=== PATIENT | male | born 1995 | race Two or more races ===

== ENCOUNTER 2019-06-20 19:11 | Emergency (ER) | payer OTHER ==
[~2019-06-20] VITALS: Ht 175.3 cm; Wt 70.3 kg
[2019-06-20] MEDS ORDERED: KETOROLAC TROMETH 60MG/2ML VIAL IM ONE (19:30)
[2019-06-20] MEDS ORDERED: PROPOFOL 100 ML IV ONE (20:07)
[2019-06-20] MEDS ORDERED: PROPOFOL 10 MG/ML 20 ML IV ONE (20:15)
[2019-06-20 21:53] VITALS: BP 144/71
== END 2019-06-20 23:19 | disposition home or self-care (01) ==
LOC: ER 19:11
DX: S42.91XA Fracture of right shoulder girdle, part unspecified, initial encounter for closed fracture (principal); S43.004A Unspecified dislocation of right shoulder joint, initial encounter; S09.90XA Unspecified injury of head, initial encounter; V29.9XXA Motorcycle rider (driver) (passenger) injured in unspecified traffic accident, initial encounter; Y93.55 Activity, bike riding; Y92.89 Other specified places as the place of occurrence of the external cause; Y99.8 Other external cause status
CPT/HCPCS: 23650; 70450; 73020; 96372; 99152; 99153; 99285; J1885; J2704; J7030; 96374